=== PATIENT | female | born 1970 | race Two or more races ===

== ENCOUNTER 2021-01-24 21:29 | Emergency (ER) | payer SELFPAY ==
[~2021-01-24] VITALS: Ht 154.9 cm; Wt 53.1 kg
[2021-01-24 21:47] VITALS: BP 122/79
[2021-01-24] MEDS ORDERED: Tetanus/Diptheria/Pertussis IM ONE (22:00)
--- NOTE | 2021-01-24 22:01 | NUR ---
Pte came to ER ambulatory c/o left hand finger laceration . Will continue to monitor the patient .
--- NOTE | 2021-01-24 22:03 | Emergency Room Report ---
History of Present Illness General Chief Complaint: Laceration Source: Patient Present Illness HPI This is a 50-year-old female who is right-hand dominant. She presents with chief complaint of laceration to her fingers. Onset about a couple hours prior to arrival. She was cooking and sustained a laceration to her left thumb and left index finger. No other injury. Bleeding is controlled. Last tetanus shot was around 10 years ago. Nothing made it better. Nothing made it worse. Allergies: Coded Allergies: No Known Allergies (Unverified , 01/24/21) COVID-19 Screening Contact w/high risk pt: No Experienced COVID-19 symptoms?: No COVID-19 Testing performed [employer]: Yes - last week COVID-19 Screening: Negative COVID-19 COVID-19 Testing Source: na Patient History Past Medical History: see triage record, old chart reviewed Past Surgical History: none Pertinent Family History: none Social History: Denies: smoking Now: No Immunizations: other Reviewed Nursing Documentation: PMH: Agreed; PSxH: Agreed Review of Systems Eye: Denies: eye pain, blurred vision ENT: Denies: ear pain, nose congestion, throat swelling Respiratory: Denies: cough, shortness of breath Cardiovascular: Denies: chest pain, palpitations Gastrointestinal: Denies: abdominal pain, diarrhea, nausea, vomiting Musculoskeletal: Denies: back pain, joint pain Skin: Denies: rash Neurological: Denies: headache, numbness Endocrine: Denies: increased thirst, increased urine Hematologic/Lymphatic: Denies: easy bruising All Other Systems: negative except mentioned in HPI Physical Exam Vital Signs Date Time Temp Pulse Resp B/P (MAP) Pulse Ox O2 Delivery O2 Flow Rate FiO2 01/24/21 21:32 97.9 68 18 126/78 (94) 98 Room Air Vitals normal Sp02 EP Interpretation: reviewed, normal General Appearance: well appearing, no apparent distress, alert Head: normocephalic, atraumatic Eyes: bilateral eye PERRL, bilateral eye EOMI ENT: hearing grossly normal, normal pharynx Neck: full range of motion, supple, no meningismus Respiratory: chest non-tender, lungs clear, normal breath sounds Cardiovascular #1: regular rate, rhythm, no murmur Gastrointestinal: normal bowel sounds, non tender, no mass, no organomegaly, no bruit, non-distended Musculoskeletal: back normal, normal range of motion, gait/station normal, other - Left index finger: There is a small flap laceration of about 3 mm. No foreign body. No tendon injury. Left thumb: There is a 1 cm flap laceration at the pad of the thumb. No foreign body. No tendon laceration. Psychiatric: mood/affect normal Procedures Laceration/Wound Repair Laceration/Wound Repair : Consent: Verbal Wound Location: upper extremity - Left thumb and index finger Wound's Depth, Shape: superficial, flap Wound Length (cm): 1 Wound Explored: clean Irrigated w/ Saline (ccs): 500 Wound Repaired With: Dermabond Patient Tolerated: Well Complications: None Medical Decision Making Diagnostic Impression: Primary Impression: Laceration ER Course Patient with finger laceration. No foreign body or tendon laceration. Repaired with tissue adhesive. Last Vital Signs Date Time Temp Pulse Resp B/P (MAP) Pulse Ox O2 Delivery O2 Flow Rate FiO2 01/24/21 21:47 98.2 73 17 122/79 95 Room Air Status: improved Disposition: HOME, SELF-CARE Condition: Stable Additional Instructions: Keep wound clean. Follow-up with your doctor in 7 days. Return if symptoms worsen. Dylan Hendricks MD Jan 24, 2021 22:03
[2021-01-24 22:16] VITALS: BP 130/88
--- NOTE | 2021-01-24 22:16 | NUR ---
Patient was discharge home as EDP ordered. All vital signs were taken within normal range. Patient . All prescriptions and instructions were given to the patient . Patient verbalized understanding. patient left the hospital in stable condition .
== END 2021-01-24 22:18 | disposition home or self-care (01) ==
LOC: EMR 22:04
DX: S61.012A Laceration without foreign body of left thumb without damage to nail, initial encounter (principal); S61.211A Laceration without foreign body of left index finger without damage to nail, initial encounter; W45.8XXA Other foreign body or object entering through skin, initial encounter; Y93.G3 Activity, cooking and baking; Y92.010 Kitchen of single-family (private) house as the place of occurrence of the external cause
CPT/HCPCS: 90471; 90715; 99282